=== PATIENT | female | born 2000 ===

== ENCOUNTER 2021-12-22 22:07 | Emergency (ER) | payer BC ==
[2021-12-22] MEDS ORDERED: Octyl 2-Cyanoacrylate 1 g/1 mL 1 APPLIC PEN TOP ONE (22:58)
[2021-12-22] MEDS ORDERED: Lidocaine 1% 5 ML VIAL INJECT ONE (22:58)
== END 2021-12-22 23:39 | disposition home or self-care (01) ==
LOC: MW.ED 22:07
DX: S61.012A Laceration without foreign body of left thumb without damage to nail, initial encounter (principal); Z91.048 Other nonmedicinal substance allergy status; W25.XXXA Contact with sharp glass, initial encounter
CPT/HCPCS: 12001; 73130-26-RT; 73130-RT; 99282; 99283

== ENCOUNTER 2022-02-25 11:58 | Emergency (ER) | payer BC ==
[2022-02-25] MEDS ORDERED: Lidocaine 1% 5 ML VIAL INJECT ONE (14:11)
== END 2022-02-25 14:44 | disposition home or self-care (01) ==
LOC: MW.ED 11:58
DX: S61.211A Laceration without foreign body of left index finger without damage to nail, initial encounter (principal); Z91.048 Other nonmedicinal substance allergy status; W26.8XXA Contact with other sharp object(s), not elsewhere classified, initial encounter
CPT/HCPCS: 12001; 99282